=== PATIENT | male | born 1980 | race African-American/Black ===

== ENCOUNTER 2023-05-19 17:47 | Emergency (ER) | payer SELFPAY ==
[~2023-05-19] VITALS: Ht 175.3 cm; Wt 79.8 kg
[2023-05-19 17:59] VITALS: BP 119/75; PULSE 81; RESP 17; TEMP 97.4; O2SAT 98
[2023-05-19] MEDS ORDERED: PROM12.512 PO (18:50)
[2023-05-19] MEDS ORDERED: ELIMC TP (18:50)
[2023-05-19] MEDS ORDERED: PROM6.2575 PO (18:56)
== END 2023-05-19 19:05 | disposition home or self-care (01) ==
LOC: MED 17:47
DX: R11.0 Nausea (principal); Z76.0 Encounter for issue of repeat prescription; Z79.899 Other long term (current) drug therapy
CPT/HCPCS: 99281